=== PATIENT | male | born 1970 | race African-American/Black ===

== ENCOUNTER 2022-02-05 17:46 | Emergency (ER) | payer MEDICAID ==
[~2022-02-05] VITALS: Ht 180.3 cm; Wt 92.0 kg
[2022-02-05 17:49] VITALS: BP 138/107
[2022-02-05] MEDS ORDERED: ALBUTEROL (0.083%) 2.5MG/3ML NEB HHN STA (18:32)
[2022-02-05] MEDS ORDERED: TOPUD PO (19:37)
[2022-02-05] MEDS ORDERED: ALBU6.7H3 INH (19:37)
== END 2022-02-05 20:04 | disposition home or self-care (01) ==
LOC: ER 17:46
DX: B34.9 Viral infection, unspecified (principal); Z20.822 Contact with and (suspected) exposure to COVID-19; E11.9 Type 2 diabetes mellitus without complications
CPT/HCPCS: 71045; 87426; 87804; 94640; 99284; C9803; Z7610

== ENCOUNTER 2024-01-25 11:34 | Emergency (ER) | payer MEDICAID ==
[~2024-01-25] VITALS: Ht 180.3 cm; Wt 132.0 kg
[~2024-01-25 11:34] MED LIST: ALBU6.7H3 INH; TOPUD PO
[2024-01-25 12:02] VITALS: BP 130/76; TEMP 98.9; O2SAT 100
[2024-01-25 12:04] VITALS: PULSE 110; RESP 18; O2SAT 99
[2024-01-25 12:49] LABS: BASOPHILS % 1.4 % (0.0-2.0); EOSINOPHILS % 2.6 % (0.0-5.0); HEMATOCRIT. 48.6 % (42.0-52.0); HEMOGLOBIN. 16.4 g/dL (14.0-18.0); LYMPHOCYTES % 29.2 % (20.0-50.0); MEAN CORPUSCULAR HEMOGLOBIN 31.7 pg (28.0-32.0); MEAN CORPUSCULAR HGB CONC 33.8 g/dL (31.0-37.0); MEAN CORPUSCULAR VOLUME 93.9 fL (80.0-94.0); MEAN PLATELET VOLUME 7.3 fl (7.4-10.4); MONOCYTES % 6.7 % (2.0-8.0); NEUTROPHILS % 60.1 % (40.0-76.0); PLATELET 263 x1000/uL (130-400); RED BLOOD CELL COUNT 5.18 mill/uL (4.7-6.1); RED CELL DISTRIBUTION WIDTH 14.2 % (11.6-14.6); WHITE BLOOD COUNT 8.1 x1000/uL (4.5-11.0)
[2024-01-25 13:00] LABS: CALCIUM 10.4 mg/dL (8.7-10.4); CARBON DIOXIDE 29 mEq/L (21-32); CHLORIDE 105 mEq/L (98-107); POTASSIUM 3.9 mEq/L (3.5-5.1); SODIUM 138 mEq/L (136-145)
[2024-01-25 13:06] LABS: CREATININE 1.4 mg/dL (0.6-1.3); GLUCOSE 111 mg/dL (70-105); UREA NITROGEN BLOOD 13 mg/dL (9-23)
[2024-01-25] MEDS ORDERED: IBUPROFEN 600MG TABLET PO ONE (13:30)
[2024-01-25 14:50] LABS: CLARITY URINE CLEAR (CLEAR); COLOR URINE DARK YELLOW (YELLOW); GLUCOSE URINE NEGATIVE (NEGATIVE); KETONES URINE 1+ (NEGATIVE); LEUKOCYTE ESTERASE URINE NEGATIVE (NEGATIVE); NITRITE URINE NEGATIVE (NEGATIVE); OCCULT BLOOD URINE NEGATIVE (NEGATIVE); PROTEIN URINE TRACE (NEGATIVE); SPECIFIC GRAVITY URINE 1.031 (1.005-1.030)
[2024-01-25] MEDS ORDERED: IBUP-2029 MT (14:57)
[2024-01-25] MEDS ORDERED: FAMO-135 MT (14:57)
[2024-01-25] MEDS ORDERED: LACT1CAP68 MT (14:57)
[2024-01-25 15:03] LABS: HYALINE CASTS URINE 0-5 /lpf; MUCUS URINE 3+ /lpf (NONE/TRACE)
[2024-01-25 15:04] LABS: RBC URINE 0-2 /hpf (0-2); WBC URINE 0-2 /hpf (0-2)
[2024-01-25 15:05] LABS: SQUAMOUS EPITHELIAL CELL URINE FEW /lpf (RARE/1+)
[2024-01-25 15:07] LABS: BACTERIA URINE TRACE
[2024-01-25] MEDS: IBUPROFEN 600MG TABLET PO NR (17:40)
== END 2024-01-25 17:35 | disposition home or self-care (01) ==
LOC: ER 11:34
DX: K52.9 Noninfective gastroenteritis and colitis, unspecified (principal); I10 Essential (primary) hypertension
CPT/HCPCS: 36415; 71045; 80048; 81003; 85025; 99284